=== PATIENT | male | born 1995 | race Hispanic/Latino ===

== ENCOUNTER → 2024-06-19 10:44 | Outpatient (CLI) | payer OTHER, SELFPAY ==
--- NOTE | 2024-06-19 | DI.MRI.S_ITS ---
PROCEDURE: MR THORACIC SPINE WO CON INDICATIONS: PARESTHESIA OF SKIN TECHNIQUE: Noncontrast sagittal T1 spine echo and T2 fast spin echo, sagittal STIR, and T2 fast spin echo through the thoracic spine. COMPARISON: None. FINDINGS: Image quality: Excellent. Alignment and Curvature: There is normal bony alignment. Bone Marrow: Marrow is of normal overall signal. No acute vertebral body compression fractures. Spinal Cord: Visualized spinal cord is normal in size and signal. Paraspinous Soft Tissues: No paravertebral masses. Miscellaneous: On axial images, central canal and foramina appear widely patent at all scanned levels. IMPRESSION: No significant degenerative changes. No central canal or neural foraminal stenosis Dictated by: Carrillo Pollock M.D. on 06/20/2024 at 11:16 Approved by: Carrillo Pollock M.D. on 06/20/2024 at 11:17
--- NOTE | 2024-06-19 | DI.MRI.S_ITS ---
PROCEDURE: MR LUMBAR SPINE WO CON INDICATIONS: PARESTHESIA OF SKIN TECHNIQUE: Noncontrast sagittal T1 spin echo and T2 fast echo, sagittal STIR, and T2 fast spin echo through the lumbar spine. In cases with scoliosis, additional coronal T2 fast spin echo may be performed. COMPARISON: None. FINDINGS: Image quality: Excellent. Alignment and Curvature: There is normal bony alignment. Bone Marrow: Marrow is of normal overall signal. No acute vertebral body compression fractures. Spinal Cord: Conus medullaris terminates at the L1 level. Visualized cord demonstrates normal signal and size. Paraspinous Soft Tissues: No paravertebral masses. T12-L1: Normal appearance. L1-L2: Normal appearance. L2-L3: Normal appearance. L3-L4: Normal appearance. L4-L5: Normal appearance. L5-S1: Disc desiccation, mild height loss and mild diffuse disc bulge with posterior annular tear. No central canal or neural foraminal stenosis. IMPRESSION: Focal degenerative disc disease at L5-S1. No significant central canal neural foraminal stenosis. Dictated by: Carrillo Pollock M.D. on 06/20/2024 at 11:14 Approved by: Carrillo Pollock M.D. on 06/20/2024 at 11:15
== END ==
DX: M51.379 Other intervertebral disc degeneration, lumbosacral region without mention of lumbar back pain or lower extremity pain (principal); R20.2 Paresthesia of skin
CPT/HCPCS: 72146; 72148

== ENCOUNTER → 2024-06-30 08:46 | Outpatient (CLI) | payer OTHER, SELFPAY | LOC: PHYS 08:46 | DX: R20.2 Paresthesia of skin (principal) | CPT/HCPCS: 95886; 95911 ==